=== PATIENT | female | born 1955 | race Caucasian/White ===

== ENCOUNTER → 2021-07-25 | Outpatient (CLI) | payer MEDICARE | LOC: CT 13:30 | DX: E11.51 Type 2 diabetes mellitus with diabetic peripheral angiopathy without gangrene (principal); F17.209 Nicotine dependence, unspecified, with unspecified nicotine-induced disorders; I70.92 Chronic total occlusion of artery of the extremities | CPT/HCPCS: 75635; Q9967 ==

== ENCOUNTER 2021-10-21 17:11 | Emergency (ER) | payer MEDICARE ==
[2021-10-21 17:59] LABS: HEMOGLOBIN 9.8 gm/dl (12.3-15.3); RED BLOOD COUNT 3.82 M/UL (4.00-5.10); WHITE BLOOD COUNT 8.1 K/UL (4.5-11.0)
[2021-10-21] MEDS ORDERED: SODIUM CHLORIDE1 G1 PO (20:26)
== END 2021-10-21 20:37 | disposition home or self-care (01) ==
LOC: ER1 17:11
PROVIDERS: Physician Assistant
DX: E87.1 Hypo-osmolality and hyponatremia (principal); I11.0 Hypertensive heart disease with heart failure; E11.9 Type 2 diabetes mellitus without complications; I50.9 Heart failure, unspecified; E78.5 Hyperlipidemia, unspecified; F17.210 Nicotine dependence, cigarettes, uncomplicated; Z95.1 Presence of aortocoronary bypass graft
CPT/HCPCS: 80053; 85025

== ENCOUNTER → 2021-11-09 | Outpatient (CLI) | payer MEDICARE ==
[~2021-11-09] MED LIST: SODIUM CHLORIDE1 G1 PO
== END ==
LOC: CT 10-31 08:30
DX: I70.235 Atherosclerosis of native arteries of right leg with ulceration of other part of foot (principal); L97.519 Non-pressure chronic ulcer of other part of right foot with unspecified severity; I70.222 Atherosclerosis of native arteries of extremities with rest pain, left leg; M79.89 Other specified soft tissue disorders; F17.219 Nicotine dependence, cigarettes, with unspecified nicotine-induced disorders; I10 Essential (primary) hypertension; I70.91 Generalized atherosclerosis
CPT/HCPCS: 75635; Q9967